=== PATIENT | female | born 1945 | race Caucasian/White ===

== ENCOUNTER 2017-01-23 13:42 | Outpatient (CLI) | payer MEDICARE, OTHER | END 2017-01-23 13:43 | disposition home or self-care (01) | DX: Z00.00 Encounter for general adult medical examination without abnormal findings (principal) ==

== ENCOUNTER → 2017-04-26 | Outpatient (CLI) | payer MEDICARE, OTHER ==
[2017-04-26 13:01] LABS: ALBUMIN/GLOBULIN RATIO 1.6 (1.0-2.2); BILIRUBIN,TOTAL 0.7 mg/dL (0.2-1.0); BUN - BLOOD UREA NITROGEN 16 mg/dL (6-20); CALCIUM 9.5 mg/dL (8.5-10.3); CARBON DIOXIDE - CO2 30 mmol/L (21-32); CHLORIDE 104 mmol/L (101-111); CHOL/HDL RATIO 3.7 (<4.4); CHOLESTEROL 217 mg/dL; CREATININE 0.7 mg/dL (0.4-1.0); GFR - MDRD 82 (>89); GLUCOSE 111 mg/dL (70-100); HDL CHOLESTEROL 58 mg/dL; LDL/HDL RATIO 2.3 (<4.4); POTASSIUM 4.2 mmol/L (3.5-5.0); SODIUM 140 mmol/L (135-145); TOTAL PROTEIN 7.1 g/dL (6.7-8.2); TRIGLYCERIDES 118 mg/dL; VLDL CHOLESTEROL 24 mg/dL
== END ==
LOC: LAB.WCP 08:00
PROVIDERS: ATTEND Physician Assistant Medical
DX: R73.9 Hyperglycemia, unspecified (principal); E78.5 Hyperlipidemia, unspecified
CPT/HCPCS: 36415; 80053; 80061

== ENCOUNTER 2017-05-10 10:26 | Outpatient (CLI) | payer MEDICARE, OTHER ==
--- NOTE | 2017-05-11 16:35 | Mammography Report ---
DIGITAL SCREENING MAMMOGRAM: 05/10/2017 CLINICAL INDICATION: A 71-year-old with family history of breast cancer, for screening. COMPARISON: 03/2016, 03/2015, 03/2014, 03/2013, 03/2012, 03/2011, 03/2010, 03/2009. TECHNIQUE: Routine CC and MLO projections were obtained of the breasts. FINDINGS: The breasts demonstrate scattered fibroglandular densities bilaterally. Coarse and punctat e, typically benign calcifications are present. No suspicious masses, clustered microcalcifications, or regions of architectural distortion are identified. IMPRESSION: BENIGN FINDINGS. RECOMMENDATION: ROUTINE ANNUAL SCREENING UNLESS OTHERWISE CLINICALLY INDICATED. BIRADS CATEGORY 2-BENIGN FINDINGS. STANDARD QUALIFYING STATEMENTS 1. This examination was reviewed with the aid of Computer-Aided Detection (CAD). 2. A negative or benign imaging report should not delay biopsy if clinically suspicious findings are present. Consider surgical consultation if warranted. More than 5% of cancers are not identified by i maging. 3. Dense breasts may obscure an underlying neoplasm. JOB #: [id number] EXT JOB #:[id number]
== END 2017-05-10 10:27 | disposition home or self-care (01) ==
LOC: DI.N 10:26
PROVIDERS: ATTEND Physician Assistant Medical
DX: Z12.31 Encounter for screening mammogram for malignant neoplasm of breast (principal); Z80.3 Family history of malignant neoplasm of breast
CPT/HCPCS: 77067

== ENCOUNTER 2017-09-12 15:17 | Outpatient (CLI) | payer MEDICARE, OTHER ==
[2017-09-12 12:54] LABS: HEMOGLOBIN A1C 0.51 g/dL
[2017-09-12 12:57] LABS: ALBUMIN/GLOBULIN RATIO 1.5 (1.0-2.2); BILIRUBIN,TOTAL 0.7 mg/dL (0.2-1.0); BUN - BLOOD UREA NITROGEN 17 mg/dL (6-20); CALCIUM 8.9 mg/dL (8.5-10.3); CARBON DIOXIDE - CO2 28 mmol/L (21-32); CHLORIDE 103 mmol/L (101-111); CHOL/HDL RATIO 3.6 (<4.4); CHOLESTEROL 218 mg/dL; CREATININE 0.6 mg/dL (0.4-1.0); GFR - MDRD 98 (>89); GLUCOSE 104 mg/dL (70-100); HDL CHOLESTEROL 61 mg/dL; LDL/HDL RATIO 2.2 (<4.4); SODIUM 137 mmol/L (135-145); TOTAL PROTEIN 6.9 g/dL (6.7-8.2); TRIGLYCERIDES 119 mg/dL; VLDL CHOLESTEROL 24 mg/dL
== END 2017-09-12 15:18 | disposition home or self-care (01) ==
LOC: LAB.WCP 15:17
PROVIDERS: ATTEND Physician Assistant Medical
DX: R73.9 Hyperglycemia, unspecified (principal); E78.5 Hyperlipidemia, unspecified
CPT/HCPCS: 36415; 80053; 80061; 83036

== ENCOUNTER 2018-06-06 10:09 | Outpatient (CLI) | payer MEDICARE, OTHER ==
--- NOTE | 2018-06-07 16:58 | Mammography Report ---
Procedure Date: 06/06/2018 Accession Number: [id number] / [id number] Procedure: MGN - Screening Mammo Dig Bilat CPT Code: FULL RESULT: EXAM: Screening Mammo Dig Bilat DATE: 06/06/2018 10:30 AM CLINICAL HISTORY: 72-year-old with family history of breast cancer for screening TECHNIQUE: Bilateral CC and MLO views were obtained. COMPARISON: 05/10/2017, 04/14/2016, 03/31/2015, 04/14/2014, 04/18/2013, 04/02/2012, 04/04/2011, 04/02/2010 FINDINGS: The breasts demonstrate diffuse fatty replacement bilaterally. Coarse and punctate, typically benign calcifications are present. No suspicious masses, clustered microcalcifications, or regions of architectural distortion are identified. IMPRESSION: Benign findings RECOMMENDATION: Routine annual screening unless otherwise clinically indicated. BIRADS CATEGORY 2: Benign findings STANDARD QUALIFYING STATEMENTS: 1. This examination was reviewed with the aid of Computer-Aided Detection (CAD). 2. A negative or benign imaging report should not delay biopsy if clinically suspicious findings are present. Consider surgical consultation if warrented. More than 5% of cancers are not identified by imaging. 3. Dense breasts may obscure an underlying neoplasm.
== END 2018-06-06 10:10 | disposition home or self-care (01) ==
LOC: DI.N 10:09
PROVIDERS: ATTEND Physician Assistant Medical
DX: Z12.31 Encounter for screening mammogram for malignant neoplasm of breast (principal)
CPT/HCPCS: 77067

== ENCOUNTER 2019-02-01 07:40 | Outpatient (CLI) | payer MEDICARE, OTHER ==
[2019-02-01 13:09] LABS: ALBUMIN 4.1 g/dL (3.2-5.5); ALBUMIN/GLOBULIN RATIO 1.6 (1.0-2.2); ALKALINE PHOSPHATASE 68 IU/L (42-121); ALT ALANINE AMINOTRANSFERASE 21 IU/L (10-60); AST ASPARTATE AMINOTRANSFERASE 23 IU/L (10-42); BILIRUBIN,TOTAL 0.9 mg/dL (0.2-1.0); BUN - BLOOD UREA NITROGEN 13 mg/dL (6-20); CALCIUM 9.2 mg/dL (8.5-10.3); CARBON DIOXIDE - CO2 30 mmol/L (21-32); CHLORIDE 101 mmol/L (101-111); CHOL/HDL RATIO 2.7 (<4.4); CHOLESTEROL 183 mg/dL; CREATININE 0.6 mg/dL (0.4-1.0); GFR - MDRD 98 (>89); GLUCOSE 108 mg/dL (70-100); HDL CHOLESTEROL 68 mg/dL; LDL CHOLESTEROL,CALCULATED 100 mg/dL; LDL/HDL RATIO 1.5 (<4.4); SODIUM 140 mmol/L (135-145); TOTAL PROTEIN 6.7 g/dL (6.7-8.2); VLDL CHOLESTEROL 15 mg/dL
== END 2019-02-01 23:59 | disposition home or self-care (01) ==
LOC: LAB.WCP 07:40
PROVIDERS: ATTEND Physician Assistant Medical
DX: R73.9 Hyperglycemia, unspecified (principal); E78.5 Hyperlipidemia, unspecified
CPT/HCPCS: 36415; 80053; 80061; 83721

== ENCOUNTER 2019-02-06 08:00 | Outpatient (CLI) | payer MEDICARE, OTHER ==
[2019-02-06 12:33] LABS: BASOPHILS % (AUTO) 0.7 %; HGB - HEMOGLOBIN 14.1 g/dL (12.0-16.0); LYMPHOCYTES # (AUTO) 1.6 10^3/uL (1.5-3.5); LYMPHOCYTES % (AUTO) 35.9 %; MEAN CORPUSCULAR HEMOGLOBIN 31.9 pg (27.0-31.0); MEAN CORPUSCULAR HGB CONC 33.9 g/dL (32.0-36.0); MEAN CORPUSCULAR VOLUME 94.2 fL (81.0-99.0); MEAN PLATELET VOLUME 8.5 fL (7.9-10.8); MONOCYTES # (AUTO) 0.5 10^3/uL (0.0-1.0); MONOCYTES % (AUTO) 10.6 %; NEUTROPHILS # (AUTO) 2.3 10^3/uL (1.5-6.6); NEUTROPHILS % (AUTO) 51.8 %; PLT - PLATELET COUNT 240 10^3/uL (130-450); RED BLOOD COUNT 4.41 10^6/uL (4.20-5.40); WHITE BLOOD COUNT 4.5 x10^3/uL (4.8-10.8)
== END 2019-02-06 23:59 | disposition home or self-care (01) ==
LOC: LAB.WCP 08:00
PROVIDERS: ATTEND Physician Assistant Medical
DX: R63.4 Abnormal weight loss (principal)
CPT/HCPCS: 36415; 84443; 85025; 85651

== ENCOUNTER 2019-07-03 09:28 | Outpatient (CLI) | payer MEDICARE, OTHER ==
--- NOTE | 2019-07-04 08:48 | Mammography Report ---
Reason: SCREENING MAMMO Procedure Date: 07/03/2019 Accession Number: [id number] / [id number] Procedure: MGN - Screening Mammo Dig Bilat CPT Code: FULL RESULT: EXAM: Screening Mammo Dig Bilat DATE: 07/03/2019 9:56 AM CLINICAL HISTORY: Screening encounter. Family history of breast cancer in the mother at the age of 70. TECHNIQUE: (B) - Bilateral CC and MLO views were obtained. COMPARISON: 06/06/2018 through 03/31/2015. PARENCHYMAL PATTERN: (A) - The breast(s) demonstrate(s) scattered fibroglandular densities. FINDINGS: There are no suspicious masses, calcifications, or areas of distortion. IMPRESSION: Negative examination. BI-RADS category 1. RECOMMENDATION: (ANNUAL) - Recommend routine annual screening mammography. BI-RADS CATEGORY: (1) - Negative. STANDARD QUALIFYING STATEMENTS: 1. This examination was not reviewed with the aid of Computer-Aided Detection (CAD). 2. A negative or benign imaging report should not preclude biopsy if clinically suspicious findings are present. 3. Dense breasts may obscure an underlying neoplasm. 4. This examination was reviewed without the aid of 3D breast imaging (tomosynthesis).
== END 2019-07-03 09:29 | disposition home or self-care (01) ==
LOC: DI.N 09:28
DX: Z12.31 Encounter for screening mammogram for malignant neoplasm of breast (principal); Z80.3 Family history of malignant neoplasm of breast
CPT/HCPCS: 77067

== ENCOUNTER 2019-09-20 08:00 | Outpatient (CLI) | payer MEDICARE, OTHER ==
[2019-09-20 12:23] LABS: CALCIUM 9.1 mg/dL (8.5-10.3); CREATININE 0.6 mg/dL (0.4-1.0)
[2019-09-20 13:23] LABS: HB2 TOTAL 14.3 g/dL; HEMOGLOBIN A1C 0.51 g/dL; HEMOGLOBIN A1C % 5.4 % (4.6-6.2)
== END 2019-09-20 23:59 | disposition home or self-care (01) ==
LOC: LAB.WCP 08:00
PROVIDERS: ATTEND Physician Assistant Medical
DX: R73.9 Hyperglycemia, unspecified (principal)
CPT/HCPCS: 36415; 80048; 83036

== ENCOUNTER 2020-01-13 08:00 | Outpatient (CLI) | payer MEDICARE, OTHER | END 2020-01-13 23:59 | disposition home or self-care (01) | LOC: LAB.R 08:00 | PROVIDERS: ATTEND Physician Assistant Medical | DX: R30.0 Dysuria (principal) | CPT/HCPCS: 87086 ==

== ENCOUNTER 2020-05-08 08:00 | Outpatient (CLI) | payer MEDICARE, OTHER | END 2020-05-08 23:59 | disposition home or self-care (01) | LOC: LAB.WCP 08:00 | PROVIDERS: ATTEND Nurse Practitioner Family | DX: B37.3 Candidiasis of vulva and vagina (principal) | CPT/HCPCS: 81002 ==

== ENCOUNTER 2020-05-21 08:00 | Outpatient (CLI) | payer MEDICARE, OTHER | END 2020-05-21 23:59 | disposition home or self-care (01) | LOC: LAB.R 08:00 | PROVIDERS: ATTEND Physician Assistant Medical | DX: R30.0 Dysuria (principal) | CPT/HCPCS: 87086 ==

== ENCOUNTER 2020-07-01 16:17 | Outpatient (CLI) | payer MEDICARE, OTHER ==
--- NOTE | 2020-07-02 11:40 | XRAY Report ---
PROCEDURE: Lumbar Spine 2 View INDICATIONS: STRAIN OF MUSCLE, FASCIA AND TENDON OF LOWER BACK TECHNIQUE: 3 views of the lumbar spine were acquired. COMPARISON: None. FINDINGS: Bones: 5 [id number] vertebrae are present. There is normal bony alignment. Mild loss of height noted in the L2 vertebral body compatible compression fracture of indeterminate age. L2 compression deformity results in approximately 20% loss of normal vertebral body height. No suspicious bony lesio ns. Moderate L4-L5 degenerative disc disease. Mild L1-L2, L2-L3, L3-L4 and L5-S1 degenerative disc d isease. Mild to moderate L4-L5 and L5-S1 facet arthropathy. Soft tissues: Overlying bowel gas pattern is normal. No suspicious soft tissue calcifications. IMPRESSION: 1. L2 compression fracture of indeterminate age. 2. Multilevel degenerative disease. 3. Multilevel facet atrophy. 4. No acute osseous lesion. If there is continued clinical concern for pathology, then MRI should be considered for further evaluation. Reviewed by: Billie Clifford MD, PhD on 07/02/2020 11:39 AM PDT Approved by: Billie Clifford MD, PhD on 07/02/2020 11:39 AM PDT Station ID: [id number]
== END 2020-07-01 16:18 | disposition home or self-care (01) ==
LOC: DI 16:17
PROVIDERS: ATTEND Family Medicine
DX: M48.56XA Collapsed vertebra, not elsewhere classified, lumbar region, initial encounter for fracture (principal); M51.36 Other intervertebral disc degeneration, lumbar region; M51.37 Other intervertebral disc degeneration, lumbosacral region; M47.816 Spondylosis without myelopathy or radiculopathy, lumbar region; M47.817 Spondylosis without myelopathy or radiculopathy, lumbosacral region
CPT/HCPCS: 72100

== ENCOUNTER → 2020-09-01 | Outpatient (CLI) | payer MEDICARE, OTHER ==
[2020-09-01 12:31] LABS: BASOPHILS # (AUTO) 0.1 10^3/uL (0.0-0.1); BASOPHILS % (AUTO) 1.6 %; EOSINOPHILS # (AUTO) 0.3 10^3/uL (0.0-0.7); EOSINOPHILS % (AUTO) 5.4 %; HGB - HEMOGLOBIN 13.8 g/dL (12.0-16.0); LYMPHOCYTES # (AUTO) 2.6 10^3/uL (1.5-3.5); LYMPHOCYTES % (AUTO) 45.5 %; MEAN CORPUSCULAR HEMOGLOBIN 32.1 pg (27.0-31.0); MEAN CORPUSCULAR HGB CONC 33.5 g/dL (32.0-36.0); MEAN CORPUSCULAR VOLUME 95.8 fL (81.0-99.0); MEAN PLATELET VOLUME 9.9 fL (7.9-10.8); MONOCYTES # (AUTO) 0.5 10^3/uL (0.0-1.0); MONOCYTES % (AUTO) 9.2 %; NEUTROPHILS # (AUTO) 2.2 10^3/uL (1.5-6.6); NEUTROPHILS % (AUTO) 38.1 %; PLT - PLATELET COUNT 293 10^3/uL (130-450); RED CELL DISTRIBUTION WIDTH 11.9 % (12.0-15.0); WHITE BLOOD COUNT 5.7 x10^3/uL (4.8-10.8)
[2020-09-01 12:35] LABS: ALBUMIN 4.3 g/dL (3.2-5.5); ALBUMIN/GLOBULIN RATIO 1.4 (1.0-2.2); ALKALINE PHOSPHATASE 112 IU/L (42-121); ALT ALANINE AMINOTRANSFERASE 18 IU/L (10-60); AST ASPARTATE AMINOTRANSFERASE 20 IU/L (10-42); BILIRUBIN,TOTAL 0.8 mg/dL (0.2-1.0); BUN - BLOOD UREA NITROGEN 18 mg/dL (6-20); CALCIUM 9.5 mg/dL (8.5-10.3); CARBON DIOXIDE - CO2 29 mmol/L (21-32); CHLORIDE 104 mmol/L (101-111); CHOL/HDL RATIO 3.2 (<4.4); CHOLESTEROL 200 mg/dL; CREATININE 0.6 mg/dL (0.4-1.0); GLUCOSE 102 mg/dL (70-100); HDL CHOLESTEROL 62 mg/dL; LDL CHOLESTEROL,CALCULATED 116 mg/dL; LDL/HDL RATIO 1.9 (<4.4); SODIUM 142 mmol/L (135-145); TOTAL PROTEIN 7.3 g/dL (6.7-8.2); VLDL CHOLESTEROL 22 mg/dL
[2020-09-01 12:41] LABS: HEMOGLOBIN A1c% 5.3 % (4.27-6.07)
== END ==
LOC: LAB.WCP 09:04
PROVIDERS: ATTEND Physician Assistant Medical
DX: E78.5 Hyperlipidemia, unspecified (principal); R73.9 Hyperglycemia, unspecified; L71.9 Rosacea, unspecified
CPT/HCPCS: 36415; 80053; 80061; 83036; 83721; 84443; 85025

== ENCOUNTER 2020-09-28 10:37 | Outpatient (CLI) | payer MEDICARE, OTHER ==
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
== END 2020-09-28 10:38 | disposition home or self-care (01) ==
LOC: DI 10:37
PROVIDERS: ATTEND Physician Assistant Medical
DX: M81.0 Age-related osteoporosis without current pathological fracture (principal)
CPT/HCPCS: 77080

== ENCOUNTER 2020-09-29 10:48 | Outpatient (CLI) | payer MEDICARE, OTHER ==
--- NOTE | 2020-09-30 16:32 | Mammography Report ---
BILATERAL DIGITAL SCREENING MAMMOGRAM 3D/2D: 09/29/2020 CLINICAL: Family history of breast cancer. Routine screening. Comparison is made to exams dated: 07/03/2019 mammogram, 06/06/2018 mammogram, 04/14/2016 mammogram, 03/27 mammogram, 04/14/2014 mammogram, and 04/18/2012 mammogram - [facility]. The t issue of both breasts is predominantly fatty. No significant masses, calcifications, or other findings are seen in either breast. There has been no significant interval change. IMPRESSION: NEGATIVE There is no mammographic evidence of malignancy. A 1 year screening mammogram is recommended. This exam was interpreted at Station ID: [id number]. NOTE: For mammograms, a report in lay terms will be sent to the patient. Approximately 15% of breast malignancies will not be visualized mammographically. In the management of a palpable breast mass, a negative mammogram must not discourage biopsy of a clinically suspicious lesion. Electronically Signed By: Elsa chin/shanelle:09/29/2020 17:06:46 ACR BI-RADS Category 1: Negative 3341F PARENCHYMAL PATTERN: (F) - The breast(s) demonstrate(s) diffuse fatty replacement. BI-RADS CATEGORY: (1) - 1 RECOMMENDATION: (ANNUAL) - Recommend routine annual screening mammography. [id number] 1 year screening LATERALITY: (B)
== END 2020-09-29 10:49 | disposition home or self-care (01) ==
LOC: DI.N 10:48
DX: Z12.31 Encounter for screening mammogram for malignant neoplasm of breast (principal); Z80.3 Family history of malignant neoplasm of breast
CPT/HCPCS: 77063; 77067

== ENCOUNTER 2021-01-20 08:00 | Outpatient (CLI) | payer MEDICARE, OTHER | END 2021-01-20 23:59 | disposition home or self-care (01) | LOC: LAB.R 08:00 | PROVIDERS: ATTEND Nurse Practitioner Family | DX: R30.0 Dysuria (principal) | CPT/HCPCS: 87086 ==

== ENCOUNTER 2021-09-23 08:00 | Outpatient (CLI) | payer MEDICARE, OTHER ==
[2021-09-23 13:31] LABS: ALBUMIN 4.5 g/dL (3.2-5.5); ALBUMIN/GLOBULIN RATIO 1.6 (1.0-2.2); ALKALINE PHOSPHATASE 60 IU/L (42-121); ALT ALANINE AMINOTRANSFERASE 18 IU/L (10-60); AST ASPARTATE AMINOTRANSFERASE 24 IU/L (10-42); BILIRUBIN,TOTAL 0.7 mg/dL (0.2-1.0); BUN - BLOOD UREA NITROGEN 23 mg/dL (6-20); CALCIUM 9.3 mg/dL (8.5-10.3); CARBON DIOXIDE - CO2 29 mmol/L (21-32); CHLORIDE 106 mmol/L (101-111); CHOL/HDL RATIO 4.1 (<4.4); CHOLESTEROL 263 mg/dL; CREATININE 0.6 mg/dL (0.4-1.0); GFR - MDRD 97 (>89); GLUCOSE 103 mg/dL (70-100); HDL CHOLESTEROL 64 mg/dL; LDL CHOLESTEROL,CALCULATED 175 mg/dL; LDL/HDL RATIO 2.7 (<4.4); POTASSIUM 4.4 mmol/L (3.5-5.0); SODIUM 144 mmol/L (135-145); TOTAL PROTEIN 7.3 g/dL (6.7-8.2); TRIGLYCERIDES 120 mg/dL; VLDL CHOLESTEROL 24 mg/dL
== END 2021-09-23 23:59 | disposition home or self-care (01) ==
LOC: LAB.WCP 08:00
PROVIDERS: ATTEND Physician Assistant Medical
DX: R73.9 Hyperglycemia, unspecified (principal); E78.5 Hyperlipidemia, unspecified; J30.9 Allergic rhinitis, unspecified
CPT/HCPCS: 36415; 80053; 80061; 83721; 85025

== ENCOUNTER 2021-09-29 08:00 | Outpatient (CLI) | payer MEDICARE, OTHER ==
[2021-09-29 17:43] LABS: BASOPHILS # (AUTO) 0.1 10^3/uL (0.0-0.1); BASOPHILS % (AUTO) 0.9 %; EOSINOPHILS # (AUTO) 0.1 10^3/uL (0.0-0.7); EOSINOPHILS % (AUTO) 1.4 %; HCT - HEMATOCRIT 41.4 % (37.0-47.0); HGB - HEMOGLOBIN 13.8 g/dL (12.0-16.0); LYMPHOCYTES # (AUTO) 3.2 10^3/uL (1.5-3.5); LYMPHOCYTES % (AUTO) 40.3 %; MEAN CORPUSCULAR HEMOGLOBIN 31.9 pg (27.0-31.0); MEAN CORPUSCULAR HGB CONC 33.3 g/dL (32.0-36.0); MEAN CORPUSCULAR VOLUME 95.6 fL (81.0-99.0); MEAN PLATELET VOLUME 10.4 fL (7.9-10.8); MONOCYTES # (AUTO) 0.7 10^3/uL (0.0-1.0); MONOCYTES % (AUTO) 8.5 %; NEUTROPHILS # (AUTO) 3.8 10^3/uL (1.5-6.6); NEUTROPHILS % (AUTO) 48.6 %; PLT - PLATELET COUNT 260 10^3/uL (130-450); RED BLOOD COUNT 4.33 10^6/uL (4.20-5.40); RED CELL DISTRIBUTION WIDTH 12.1 % (12.0-15.0); WHITE BLOOD COUNT 7.8 x10^3/uL (4.8-10.8)
== END 2021-09-29 23:59 | disposition home or self-care (01) ==
LOC: LAB.WCP 08:00
PROVIDERS: ATTEND Physician Assistant Medical
DX: J30.9 Allergic rhinitis, unspecified (principal)
CPT/HCPCS: 36415; 85025

== ENCOUNTER 2021-10-07 09:19 | Outpatient (CLI) | payer MEDICARE, OTHER ==
--- NOTE | 2021-10-08 08:26 | Mammography Report ---
BILATERAL DIGITAL SCREENING MAMMOGRAM: 10/07/2021 CLINICAL: Routine screening. Comparison is made to exams dated: 09/29/2020 mammogram, 07/03/2019 mammogram, 06/06/2018 mammogram, 03/27 mammogram, 04/10/2015 mammogram, and 04/14/2014 mammogram - [facility]. The t issue of both breasts is predominantly fatty. No significant masses, calcifications, or other findings are seen in either breast. There has been no significant interval change. IMPRESSION: NEGATIVE There is no mammographic evidence of malignancy. A 1 year screening mammogram is recommended. This exam was interpreted at Station ID: [id number]. NOTE: For mammograms, a report in lay terms will be sent to the patient. Approximately 15% of breast malignancies will not be visualized mammographically. In the management of a palpable breast mass, a negative mammogram must not discourage biopsy of a clinically suspicious lesion. Electronically Signed By: Mark Santana M.D., jr/shanelle:10/07/2021 10:00:09 ACR BI-RADS Category 1: Negative 3341F PARENCHYMAL PATTERN: (F) - The breast(s) demonstrate(s) diffuse fatty replacement. BI-RADS CATEGORY: (1) - 1 RECOMMENDATION: (ANNUAL) - Recommend routine annual screening mammography. [id number] 1 year screening LATERALITY: (B)
== END 2021-10-07 09:20 | disposition home or self-care (01) ==
LOC: DI.N 09:19
DX: Z12.31 Encounter for screening mammogram for malignant neoplasm of breast (principal)

== ENCOUNTER 2022-03-17 12:08 | Outpatient (CLI) | payer MEDICARE, OTHER ==
--- NOTE | 2022-03-17 16:32 | XRAY Report ---
PROCEDURE: Ribs w/PA Chest RT INDICATIONS: CONTUSION OF RIGHT FRONT WALL OF THORAX TECHNIQUE: 2 views of the right ribs were acquired, along with a single view chest. COMPARISON: None FINDINGS: Surgical changes and devices: None. Bones and chest wall: No fractures or dislocations. No suspicious bony lesions. Overlying soft tis sues appear unremarkable. Lungs and pleura: No pleural effusions or pneumothorax. Lungs appear clear. Mediastinum: Mediastinal contours appear normal. Heart size is normal. IMPRESSION: No displaced rib fracture. No acute cardiopulmonary disease process. Reviewed by: Billie Clifford MD, PhD on 03/17/2022 4:30 PM PDT Approved by: Billie Clifford MD, PhD on 03/17/2022 4:30 PM PDT Station ID: [id number]
--- NOTE | 2022-03-18 11:42 | XRAY Report ---
PROCEDURE: Lumbar Spine 2 View INDICATIONS: SPASM OF BACK MUSCLES TECHNIQUE: 3 views of the lumbar spine were acquired. COMPARISON: Lumbar spine x-ray 07/01/2020. FINDINGS: Bones: 5 [id number] vertebrae are present. There is a mild leftward curvature of the thoracolum bar spine centered at L1. There is a mild superior endplate compression deformity of the L1 vertebral body of indeterminate acuity but new compared to the prior study. There is loss of height of up to a pproximately 20%. No retropulsed bony fragments. Mild superior endplate scalloping of the L2 vertebra l body appears similar to the prior study. Multilevel degenerative disc disease demonstrated througho ut the lumbar spine most prominent at L4-5 where there is moderate narrowing with mild endplate scler osis and osteophytosis. There is also moderate facet arthropathy also demonstrated at L5-S1. No suspi cious bony lesions. Soft tissues: Overlying bowel gas pattern is normal. No suspicious soft tissue calcifications. IMPRESSION: 1. Mild superior endplate compression deformity of the L1 vertebral body is of indeterminate acuity b ut new compared to the prior study from 2019. No retropulsed bony fragments. 2. Mild leftward curvature of the thoracolumbar spine centered at L1 redemonstrated. 3. Multilevel degenerative disc disease most prominent at L4-5 where there is moderate degeneration. 4. Moderate facet arthropathy at L5-S1. Reviewed by: Kiran Cartagena MD on 03/18/2022 11:40 AM PDT Approved by: Kiran Cartagena MD on 03/18/2022 11:40 AM PDT Station ID: [id number]
== END 2022-03-17 23:59 | disposition home or self-care (01) ==
LOC: DI.N 12:08
PROVIDERS: ATTEND Physician Assistant Medical
DX: M62.830 Muscle spasm of back (principal); S20.211A Contusion of right front wall of thorax, initial encounter; R93.7 Abnormal findings on diagnostic imaging of other parts of musculoskeletal system; M51.36 Other intervertebral disc degeneration, lumbar region; M47.817 Spondylosis without myelopathy or radiculopathy, lumbosacral region; M47.816 Spondylosis without myelopathy or radiculopathy, lumbar region

== ENCOUNTER 2022-03-19 23:49 | Outpatient (CLI) | payer MEDICARE, OTHER | END 2022-03-19 23:50 | disposition critical access hospital (66) | LOC: EMS 23:49 | DX: M62.830 Muscle spasm of back (principal); M54.50 Low back pain, unspecified | CPT/HCPCS: A0425; A0429 ==

== ENCOUNTER 2022-03-20 00:14 | Emergency (ER) | payer MEDICARE, OTHER ==
[2022-03-20 00:36] VITALS: BP 153/88
[2022-03-20] MEDS ORDERED: HYDROcod/ACET 5/325 Prepack 4 PO STA (01:47)
[2022-03-20] MEDS ORDERED: ONDANSETRON ODT 4 MG Prepack 2 TL PRN (01:47)
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
== END 2022-03-20 02:04 | disposition home or self-care (01) ==
LOC: EDBD → EDUNIT# → ED 00:14
DX: M54.50 Low back pain, unspecified (principal)
CPT/HCPCS: 99282

== ENCOUNTER 2022-03-24 08:58 | Outpatient (CLI) | payer MEDICARE, OTHER ==
[2022-03-24 12:17] LABS: CHOL/HDL RATIO 3.6 (<4.4); CHOLESTEROL 206 mg/dL; HDL CHOLESTEROL 57 mg/dL; LDL CHOLESTEROL,CALCULATED 124 mg/dL; LDL/HDL RATIO 2.2 (<4.4); TRIGLYCERIDES 124 mg/dL; VLDL CHOLESTEROL 25 mg/dL
== END 2022-03-24 08:59 | disposition home or self-care (01) ==
LOC: LAB.N 08:58
PROVIDERS: ATTEND Physician Assistant Medical
DX: E78.5 Hyperlipidemia, unspecified (principal)
CPT/HCPCS: 36415; 80061; 83721

== ENCOUNTER 2022-04-04 12:51 | Outpatient (CLI) | payer MEDICARE, OTHER ==
--- NOTE | 2022-04-04 17:52 | MRI Report ---
PROCEDURE: Lumbar Spine W/O INDICATIONS: CHRONIC LOW BACK PAIN TECHNIQUE: Noncontrast sagittal T1 spin echo and T2 fast echo, sagittal STIR, axial T1 and T2 fast spin echo thr ough the lumbar spine. In cases with scoliosis, additional coronal T2 fast spin echo may be performe d. COMPARISON: Correlation is made with prior lumbar plain films, 03/17/2022. FINDINGS: Image quality: Excellent. Alignment and Curvature: There is normal bony alignment. Bone Marrow: Marrow is of normal overall signal. A subacute fracture can be seen involving the L1 le nicholas, with 40-50% loss of height centrally. Chronic fractures without acute features can be seen involving L2 and L4, with approximately 30% loss of height centrally at L2 and approximately 30% loss of height centrally at L4. Spinal Cord: Conus medullaris terminates at the L1 level. Visualized cord demonstrates normal signa l and size. Paraspinous Soft Tissues: No paravertebral masses. T12-L1: No significant abnormality is seen. L1-L2: The disc height is well-preserved. There is loss of disc signal seen. Mild disc bulge is s een. Mild facet hypertrophy is seen. There is moderate right-sided and no significant left-sided n euroforaminal narrowing. No significant central canal narrowing is seen. L2-L3: The disc height is well-preserved. There is loss of disc signal seen. Mild disc bulge is s een. Mild facet hypertrophy is seen. No significant neural foraminal or central canal narrowing ca n be seen. L3-L4: The disc height and disc signal are relatively well-preserved. Moderate disc bulge is seen at this level. Mild to moderate facet hypertrophy is seen. Associated hypertrophy of the ligamentu m flavum can be seen. Moderate bilateral neural foraminal narrowing is seen. Moderate central can al narrowing is seen. L4-L5: At least moderate loss of disc height and disc signal can be seen. Moderate disc bulge is se en, which is eccentric to the left. Moderate facet hypertrophy is seen. There is moderate to severe left-sided and at least moderate right-sided neuroforaminal narrowing. Compression is seen upon the exiting nerve roots. Mild to moderate central canal narrowing is seen. L5-S1: The disc height is well-preserved. There is loss of disc signal seen. Mild disc bulge is se en. There is mild right-sided and at least moderate left-sided facet hypertrophy. Mild bilateral ne ural foraminal narrowing is seen. No significant central canal narrowing is seen. IMPRESSION: Subacute fracture seen involving L1. Chronic fractures involving L1-2 and L4. Multiple levels of degenerative change are seen, which are worst at the L4-L5 level. Reviewed by: Benjamin Palafox MD on 04/04/2022 4:51 PM AKDT Approved by: Benjamin Palafox MD on 04/04/2022 4:51 PM AKDT Station ID: [id number]
== END 2022-04-04 12:52 | disposition home or self-care (01) ==
LOC: DI 12:51
PROVIDERS: ATTEND Physician Assistant Medical
DX: M47.816 Spondylosis without myelopathy or radiculopathy, lumbar region (principal); M47.817 Spondylosis without myelopathy or radiculopathy, lumbosacral region; M51.36 Other intervertebral disc degeneration, lumbar region; M48.061 Spinal stenosis, lumbar region without neurogenic claudication; M51.37 Other intervertebral disc degeneration, lumbosacral region; M48.07 Spinal stenosis, lumbosacral region; M48.56XD Collapsed vertebra, not elsewhere classified, lumbar region, subsequent encounter for fracture with routine healing

== ENCOUNTER 2023-04-11 07:35 | Outpatient (CLI) | payer MEDICARE, OTHER ==
[2023-04-11 12:19] LABS: ALBUMIN 4.3 g/dL (3.2-5.5); ALBUMIN/GLOBULIN RATIO 1.3 (1.0-2.2); ALKALINE PHOSPHATASE 61 IU/L (42-121); ALT ALANINE AMINOTRANSFERASE 20 IU/L (10-60); AST ASPARTATE AMINOTRANSFERASE 23 IU/L (10-42); BILIRUBIN,TOTAL 0.7 mg/dL (0.2-1.0); BUN - BLOOD UREA NITROGEN 21 mg/dL (6-20); CALCIUM 9.1 mg/dL (8.5-10.3); CARBON DIOXIDE - CO2 29 mmol/L (21-32); CHLORIDE 105 mmol/L (101-111); CHOL/HDL RATIO 3.6 (<4.4); CHOLESTEROL 253 mg/dL; CREATININE 0.6 mg/dL (0.4-1.0); GFR - MDRD 97 (>89); GLUCOSE 118 mg/dL (70-100); HDL CHOLESTEROL 71 mg/dL; LDL CHOLESTEROL,CALCULATED 159 mg/dL; LDL/HDL RATIO 2.2 (<4.4); POTASSIUM 4.3 mmol/L (3.5-5.0); SODIUM 140 mmol/L (135-145); TOTAL PROTEIN 7.5 g/dL (6.7-8.2); TRIGLYCERIDES 113 mg/dL; VLDL CHOLESTEROL 23 mg/dL
[2023-04-12 15:32] LABS: ESTIMATED AVERAGE GLUCOSE 111 mg/dL (70-100); HEMOGLOBIN A1c% 5.5 % (4.27-6.07)
== END 2023-04-11 07:36 | disposition home or self-care (01) ==
LOC: LAB.N 07:35
PROVIDERS: ATTEND Physician Assistant Medical
DX: E78.5 Hyperlipidemia, unspecified (principal); R73.9 Hyperglycemia, unspecified
CPT/HCPCS: 36415; 80053; 80061; 83036; 83721

== ENCOUNTER 2023-05-18 09:37 | Outpatient (CLI) | payer MEDICARE, OTHER ==
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
== END 2023-05-18 09:38 | disposition home or self-care (01) ==
LOC: DI 09:37
PROVIDERS: ATTEND Physician Assistant Medical
DX: M81.0 Age-related osteoporosis without current pathological fracture (principal); Z78.0 Asymptomatic menopausal state

== ENCOUNTER 2023-10-09 07:23 | Outpatient (CLI) | payer MEDICARE, OTHER ==
[2023-10-09 12:54] LABS: ESTIMATED AVERAGE GLUCOSE 114 mg/dL (70-100); HEMOGLOBIN A1c% 5.6 % (4.27-6.07)
[2023-10-09 13:03] LABS: ALBUMIN 4.3 g/dL (3.2-5.5); ALBUMIN/GLOBULIN RATIO 1.7 (1.0-2.2); ALKALINE PHOSPHATASE 58 IU/L (42-121); ALT ALANINE AMINOTRANSFERASE 16 IU/L (10-60); AST ASPARTATE AMINOTRANSFERASE 18 IU/L (10-42); BILIRUBIN,TOTAL 0.4 mg/dL (0.2-1.0); BUN - BLOOD UREA NITROGEN 24 mg/dL (6-20); CALCIUM 9.2 mg/dL (8.5-10.3); CARBON DIOXIDE - CO2 32 mmol/L (21-32); CHLORIDE 106 mmol/L (101-111); CHOL/HDL RATIO 3.7 (<4.4); CHOLESTEROL 223 mg/dL; CREATININE 0.5 mg/dL (0.6-1.3); GFR - MDRD 119 (>89); GLUCOSE 103 mg/dL (74-104); HDL CHOLESTEROL 61 mg/dL; LDL CHOLESTEROL,CALCULATED 142 mg/dL; LDL/HDL RATIO 2.3 (<4.4); POTASSIUM 4.2 mmol/L (3.5-4.5); SODIUM 141 mmol/L (135-145); TOTAL PROTEIN 6.8 g/dL (6.4-8.9); TRIGLYCERIDES 99 mg/dL (48-352); VLDL CHOLESTEROL 20 mg/dL
== END 2023-10-09 07:24 | disposition home or self-care (01) ==
LOC: LAB.N 07:23
PROVIDERS: ATTEND Physician Assistant Medical
DX: E78.5 Hyperlipidemia, unspecified (principal); R73.9 Hyperglycemia, unspecified
CPT/HCPCS: 36415; 80053; 80061; 83036; 83721

== ENCOUNTER 2024-02-24 14:14 | Emergency (ER) | payer MEDICARE, OTHER ==
--- NOTE | 2024-02-24 14:49 | ED Physician Documentation ---
PD HPI CHEST PAIN - Stated complaint Stated Complaint: CHEST/ARM PX - Chief complaint Chief Complaint: Cardiac - History obtained from History obtained from: Patient, Family - History of Present Illness Timing - duration: Days (1) Timing - details: Gradual onset, Constant Pain level max: 6 Pain level now: 6 Quality: Pressure, Aching Location: Substernal Radiation: Jaw, Left upper extremity, Right upper extremity Improved by: Nothing Worsened by: Exertion Associated symptoms: No: Shortness of air, Diaphoresis, Nausea, Vomiting, Feeling faint / dizzy, General Weakness, Palpitations, Cough - Additional information Additional information: Patient is a 78-year-old female comes into the emergency department with her . She states that yesterday she developed substernal chest pain that is radiating to the bilateral arms and up to the jaw. She states that the jaw pain has been coming and going but the chest pain and bilateral arm pain has been constant. Worse with exertion, nothing makes it better. Has not had similar symptoms previously. Denies any cardiac history. Denies any history of hypertension, hyperlipidemia. Has a history of osteoporosis. Has never seen a net repairer. No cough. No congestion. No fevers. No chills. No leg swelling. No recent immobilization. Does not smoke. Rarely drinks alcohol. Her PCP is EVE Gao. Review of Systems Constitutional: denies: Fever, Chills GI: denies: Vomiting, Diarrhea Skin: denies: Rash Musculoskeletal: denies: Neck pain, Back pain Neurologic: denies: Headache PD PAST MEDICAL HISTORY - Past Medical History Cardiovascular: None Respiratory: None Endocrine/Autoimmune: None GI: None : None HEENT: Chronic sinusitis, Chronic hearing loss Psych: None Musculoskeletal: Osteoporosis, Chronic back pain Derm: None, Other - Past Surgical History Past Surgical History: Yes General: Colonoscopy Derm: Skin cancer surgery - Present Medications Home Medications: Ambulatory Orders Medication Instructions Recorded Confirmed Calcium Carb, Citrate/Vit D3 1 tab ORAL DAILY 09/17/14 02/24/24 [Citracal + D ER Tablet] Vit D3/Folic Acid/B2/B6/B12 1 tab ORAL DAILY 09/17/14 02/24/24 [Folgard Tablet] Alendronate [Fosamax] 70 mg PO Q7D 02/24/24 02/24/24 Estradiol [Vagifem] 10 mcg VG QPM 02/24/24 02/24/24 Gabapentin [Gabapentin ER] 300 mg PO TID 02/24/24 02/24/24 Meloxicam 15 mg PO DAILY 02/24/24 02/24/24 - Allergies Allergies/Adverse Reactions: Allergies Allergy/AdvReac Type Severity Reaction Status Date / Time codeine AdvReac Nausea Verified 02/24/24 14:29 - Social History Does the pt smoke?: No Smoking Status: Never smoker Does the pt drink ETOH?: No Does the pt have substance abuse?: No PD ED PE NORMAL - Vitals Vital signs reviewed: Yes - General General: Alert and oriented X 3, No acute distress - HEENT HEENT: Moist mucous membranes - Neck Neck: Supple, no meningeal sign, No bony TTP, No JVD, No bruit - Cardiac Cardiac: RRR, No murmur, No gallop, No rub, Strong equal pulses - Respiratory Respiratory: No respiratory distress, Clear bilaterally - Abdomen Abdomen: Soft, Non tender, Non distended - Derm Derm: Warm and dry - Extremities Extremities: No edema, No calf tenderness / cord - Neuro Neuro: Alert and oriented X 3 - Psych Psych: Normal mood, Normal affect Results - Vitals Vitals: Vital Signs - 24 hr 02/24/24 02/24/24 02/24/24 14:24 15:16 17:00 Temperature 36.4 C L Heart Rate 94 112 H 77 Respiratory 18 16 20 Rate Blood Pressure 131/113 H 129/60 160/79 H O2 Saturation 97 95 99 02/24/24 19:00 Temperature Heart Rate 73 Respiratory 15 Rate Blood Pressure 151/84 H O2 Saturation 98 Oxygen O2 Source Room air - EKG (time done) 1429 EKG releavant findings:: EKG personally interpreted by author of this note. Relevant findings are: Rate: Rate (enter#) Rhythm: NSR (94), Wide complex tachycardia Intervals: Normal [place] QRS: LVH Ischemia: ST depression (II, III, aVF, V4,5,6) Compare to prior EKG: Other (Reviewed prior EKG from July 13, 2022. Has new ST depressions in V4, V5, V6, II, III, aVF.) 1436 EKG releavant findings:: EKG personally interpreted by author of this note. Relevant findings are: Rate: Rate (enter#) (101) Rhythm: Sinus tachycardia [place]: Normal Intervals: Normal [place] Ischemia: ST depression (II, III, aVF) Other comments: Other comments (posterior EKG) 6451 EKG releavant findings:: EKG personally interpreted by author of this note. Relevant findings are: Rate: Rate (enter#) (69) Rhythm: NSR [place]: Normal Intervals: Normal [place] QRS: Normal, LVH Ischemia: ST depression (II, III,aVF, v4-6) - Labs Labs: Laboratory Tests 02/24/24 02/24/24 14:52 14:52 WBC 7.3 RBC 4.91 Hgb 15.2 Hct 45.7 MCV 93.1 MCH 31.0 MCHC 33.3 RDW 11.8 L Plt Count 217 MPV 9.7 Neut # (Auto) 5.2 Lymph # (Auto) 1.4 L [place] # (Auto) 0.5 Eos # (Auto) 0.1 Baso # (Auto) 0.1 Absolute Nucleated RBC 0.00 Nucleated RBC % 0.0 Sodium 138 Potassium 3.9 Chloride 100 L Carbon Dioxide 29 Anion Gap 9.0 BUN 26 H Creatinine 0.7 Estimated GFR (MDRD) 81 L Glucose 130 H Calcium 11.1 H Total Bilirubin 0.5 AST 41 ALT 19 Alkaline Phosphatase 63 Troponin I High Sens 1998.4 H* Total Protein 7.0 Albumin 4.4 Globulin 2.6 Albumin/Globulin Ratio 1.7 Lipase 32 - Rads (name of study) cxr Relevant Findings:: Final report received, See rad report PD Medical Decision Making - ED course Complexity details: reviewed results, re-evaluated patient, considered differential, d/w patient, d/w family, d/w fashion consultant ED course: 78-year-old female with new ST depressions in her EKG since June 2022. History is concerning for ACS as well. Aspirin and nitroglycerin given. Elevated troponin consistent with NSTEMI. nitropaste applied. lovenox given. Cardiolgoy is not available here and will need to transfer. Patient will be transferred to [facility], accepted by the hospitalist Dr. Portillo, Who graciously accepts in transfer. COBRA forms completed. Patient is currently pain-free. Patient did become nauseated in the emergency department. Improved with Zofran. Departure - Departure Disposition: 02 Transfer Acute Care Hosp Clinical Impression: NSTEMI (non-ST elevated myocardial infarction) Condition: Stable Forms: PCP List
[2024-02-24] MEDS: NITROGLYCERIN SL 0.4 MG TABLET SL STA (14:54)
[2024-02-24] MEDS: ASPIRIN CHEW 81 MG TABLET PO STA (14:54)
[2024-02-24 14:58] LABS: BASOPHILS # (AUTO) 0.1 10^3/uL (0.0-0.1); EOSINOPHILS # (AUTO) 0.1 10^3/uL (0.0-0.7); EOSINOPHILS % (AUTO) 0.7 %; HCT - HEMATOCRIT 45.7 % (37.0-47.0); HGB - HEMOGLOBIN 15.2 g/dL (12.0-16.0); LYMPHOCYTES # (AUTO) 1.4 10^3/uL (1.5-3.5); LYMPHOCYTES % (AUTO) 19.5 %; MEAN CORPUSCULAR HGB CONC 33.3 g/dL (32.0-36.0); MEAN CORPUSCULAR VOLUME 93.1 fL (81.0-99.0); MEAN PLATELET VOLUME 9.7 fL (7.9-10.8); MONOCYTES # (AUTO) 0.5 10^3/uL (0.0-1.0); MONOCYTES % (AUTO) 6.6 %; NEUTROPHILS # (AUTO) 5.2 10^3/uL (1.5-6.6); NEUTROPHILS % (AUTO) 71.8 %; PLT - PLATELET COUNT 217 10^3/uL (130-450); RED BLOOD COUNT 4.91 10^6/uL (4.20-5.40); RED CELL DISTRIBUTION WIDTH 11.8 % (12.0-15.0); WHITE BLOOD COUNT 7.3 x10^3/uL (4.8-10.8)
--- NOTE | 2024-02-24 15:09 | XRAY Report ---
PROCEDURE: Chest 1V INDICATIONS: Chest Pain TECHNIQUE: One view of the chest was acquired. COMPARISON: 03/17/2022 FINDINGS: Surgical changes and devices: None. Lungs and pleura: An incomplete inspiratory result is noted, with low lung volumes and crowding of t he vascular markings. No focal infiltrates are seen. No large pneumothorax or large pleural effusion can be seen. Mediastinum: Mediastinal contours appear normal. Heart size is normal. Bones and chest wall: No suspicious bony lesions. Age-appropriate degenerative changes are seen. Overlying soft tissues appear unremarkable. IMPRESSION: Low lung volumes, without an acute cardiopulmonary abnormality seen. Reviewed by: Benjamin Palafox MD on 02/24/2024 2:08 PM [facility] Approved by: Benjamin Palafox MD on 02/24/2024 2:08 PM [facility] Station ID: [id number]
[2024-02-24 15:13] LABS: ALBUMIN 4.4 g/dL (3.2-5.5); ALBUMIN/GLOBULIN RATIO 1.7 (1.0-2.2); BILIRUBIN,TOTAL 0.5 mg/dL (0.2-1.0); CALCIUM 11.1 mg/dL (8.5-10.3); CREATININE 0.7 mg/dL (0.6-1.3); POTASSIUM 3.9 mmol/L (3.5-4.5)
[2024-02-24 15:26] LABS: TROPONIN I HIGH SENSITIVITY 1998.4 ng/L (2.3-14.8)
[2024-02-24] MEDS: MORPHINE 10 MG/ML VIAL IVP STA (15:44)
[2024-02-24] MEDS: NITROGLYCERIN 2% PASTE TOP STA (15:46)
[2024-02-24] MEDS: ENOXAPARIN 60 MG/0.6 ML SYRINGE SUBQ STA (15:49)
[2024-02-24] MEDS: SODIUM CHLORIDE 0.9% 1,000 ML IV STA (15:55)
[2024-02-24] MEDS: MORPHINE 2 MG/ML CARPUJECT IVP STA (17:48)
[2024-02-24] MEDS: ONDANSETRON 4 MG/2 ML VIAL IVP STA ×2 (19:06→21:09)
[2024-02-24 21:18] VITALS: BP 167/91; O2SAT 94
== END 2024-02-24 21:23 | disposition short-term general hospital (02) ==
LOC: ED 14:14
DX: I21.4 Non-ST elevation (NSTEMI) myocardial infarction (principal); R11.0 Nausea
CPT/HCPCS: 36415; 71045; 80053; 83690; 84484; 85025; 93005; 96372; 96374; 96375; 96376; 99285; A9270; J1650

== ENCOUNTER 2024-03-04 11:32 | Outpatient (CLI) | payer MEDICARE, OTHER ==
[2024-03-04 12:32] LABS: ALBUMIN 4.3 g/dL (3.2-5.5); ALBUMIN/GLOBULIN RATIO 1.7 (1.0-2.2); BILIRUBIN,TOTAL 0.4 mg/dL (0.2-1.0); CALCIUM 9.7 mg/dL (8.5-10.3); CREATININE 0.7 mg/dL (0.6-1.3); POTASSIUM 4.2 mmol/L (3.5-4.5); TOTAL PROTEIN 6.8 g/dL (6.4-8.9)
[2024-03-04 12:33] LABS: TROPONIN I HIGH SENSITIVITY 97.2 ng/L (2.3-14.8)
== END 2024-03-04 11:33 | disposition home or self-care (01) ==
LOC: LAB 11:32
PROVIDERS: ATTEND Physician Assistant Medical
DX: R07.9 Chest pain, unspecified (principal)
CPT/HCPCS: 36415; 80053; 84484

== ENCOUNTER 2024-04-11 10:25 | Outpatient (CLI) | payer MEDICARE, OTHER ==
[2024-04-11 12:14] LABS: BASOPHILS # (AUTO) 0.1 10^3/uL (0.0-0.1); EOSINOPHILS # (AUTO) 0.2 10^3/uL (0.0-0.7); EOSINOPHILS % (AUTO) 3.5 %; HCT - HEMATOCRIT 40.2 % (37.0-47.0); HGB - HEMOGLOBIN 13.4 g/dL (12.0-16.0); LYMPHOCYTES # (AUTO) 1.5 10^3/uL (1.5-3.5); LYMPHOCYTES % (AUTO) 23.9 %; MEAN CORPUSCULAR HEMOGLOBIN 31.9 pg (27.0-31.0); MEAN CORPUSCULAR HGB CONC 33.3 g/dL (32.0-36.0); MEAN CORPUSCULAR VOLUME 95.7 fL (81.0-99.0); MEAN PLATELET VOLUME 10.8 fL (7.9-10.8); MONOCYTES # (AUTO) 0.6 10^3/uL (0.0-1.0); MONOCYTES % (AUTO) 9.8 %; NEUTROPHILS # (AUTO) 3.8 10^3/uL (1.5-6.6); NEUTROPHILS % (AUTO) 61.6 %; PLT - PLATELET COUNT 206 10^3/uL (130-450); RED CELL DISTRIBUTION WIDTH 12.2 % (12.0-15.0); WHITE BLOOD COUNT 6.2 x10^3/uL (4.8-10.8)
[2024-04-11 12:30] LABS: ALBUMIN 4.3 g/dL (3.2-5.5); ALBUMIN/GLOBULIN RATIO 1.5 (1.0-2.2); ALKALINE PHOSPHATASE 118 IU/L (42-121); ALT ALANINE AMINOTRANSFERASE 67 IU/L (10-60); AST ASPARTATE AMINOTRANSFERASE 45 IU/L (10-42); BILIRUBIN,TOTAL 0.7 mg/dL (0.2-1.0); BUN - BLOOD UREA NITROGEN 14 mg/dL (6-20); CALCIUM 9.7 mg/dL (8.5-10.3); CARBON DIOXIDE - CO2 29 mmol/L (21-32); CHLORIDE 105 mmol/L (101-111); CHOL/HDL RATIO 1.9 (<4.4); CHOLESTEROL 120 mg/dL; CREATININE 0.6 mg/dL (0.6-1.3); GFR - MDRD 96 (>89); GLUCOSE 110 mg/dL (74-104); HDL CHOLESTEROL 63 mg/dL; LDL CHOLESTEROL,CALCULATED 43 mg/dL; LDL/HDL RATIO 0.7 (<4.4); SODIUM 142 mmol/L (135-145); TOTAL PROTEIN 7.2 g/dL (6.4-8.9); TRIGLYCERIDES 68 mg/dL (48-352); VLDL CHOLESTEROL 14 mg/dL
== END 2024-04-11 10:26 | disposition home or self-care (01) ==
LOC: LAB.N 10:25
PROVIDERS: ATTEND Physician Assistant Medical
DX: J30.9 Allergic rhinitis, unspecified (principal); E78.5 Hyperlipidemia, unspecified
CPT/HCPCS: 36415; 80053; 80061; 83721; 85025

== ENCOUNTER 2024-04-25 09:12 | Outpatient (CLI) | payer MEDICARE, OTHER ==
--- NOTE | 2024-04-26 08:58 | Mammography Report ---
BILATERAL DIGITAL SCREENING MAMMOGRAM: 04/25/2024 CLINICAL: Routine screening. Family history of breast cancer. Comparison is made to exams dated: 11/10/2022 mammogram, 10/07/2021 mammogram, 09/29/2020 mammogram, 07/03/2019 mammogram, 06/06/2018 mammogram, and 04/14/2016 mammogram - [facility]. Both breasts are almost entirely fatty (category a/<25% glandular tissue). No significant masses, calcifications, or other findings are seen in either breast. There has been no significant interval change. IMPRESSION: NEGATIVE There is no mammographic evidence of malignancy. A 1 year screening mammogram is recommended. Based on the Tyrer Cuzick model (a risk assessment model) the patient's lifetime risk is 2.7% and her 10 year risk is 0.0%. According to the ACR, ACS, and NCCN guidelines, an annual breast MRI exam ronaldo g with mammogram is recommended if the patient's lifetime risk is 20% or greater. This exam was interpreted at Station ID: [id number]. NOTE: For mammograms, a report in lay terms will be sent to the patient. Approximately 15% of breast malignancies will not be visualized mammographically. In the management of a palpable breast mass, a negative mammogram must not discourage biopsy of a clinically suspicious lesion. Electronically Signed By: Elsa chin/shanelle:04/25/2024 14:38:59 letter sent: No_Letter ACR BI-RADS Category 1: Negative 3341F PARENCHYMAL PATTERN: (F) - The breast(s) demonstrate(s) diffuse fatty replacement. BI-RADS CATEGORY: (1) - 1 RECOMMENDATION: (ANNUAL) - Recommend routine annual screening mammography. [id number] 1 year screening LATERALITY: (B)
== END 2024-04-25 09:13 | disposition home or self-care (01) ==
LOC: DI.N 09:12
DX: Z12.31 Encounter for screening mammogram for malignant neoplasm of breast (principal); Z80.3 Family history of malignant neoplasm of breast

== ENCOUNTER 2024-05-13 08:46 | Outpatient (CLI) | payer MEDICARE, OTHER ==
[2024-05-13 12:48] LABS: ALBUMIN 4.3 g/dL (3.2-5.5); ALBUMIN/GLOBULIN RATIO 1.6 (1.0-2.2); BILIRUBIN,TOTAL 0.5 mg/dL (0.2-1.0); CALCIUM 9.8 mg/dL (8.5-10.3); CREATININE 0.6 mg/dL (0.6-1.3); POTASSIUM 4.5 mmol/L (3.5-4.5)
== END 2024-05-13 08:47 | disposition home or self-care (01) ==
LOC: LAB.N 08:46
PROVIDERS: ATTEND Physician Assistant Medical
DX: R74.8 Abnormal levels of other serum enzymes (principal)
CPT/HCPCS: 36415; 80053